=== PATIENT | female | born 1955 | race Two or more races ===

== ENCOUNTER → 2016-12-12 12:31 | Outpatient (CLI) | payer MEDICAID ==
--- NOTE | 2016-12-17 14:16 | EC ---
PATIENT:SHARI LOPEZ DATE OF SERVICE: 12/12/16 SEX: F MEDICAL RECORD: [id number] DATE OF : 55 LOCATION:D[facility] AGE OF PATIENT: 61 ADMISSION DATE: 12/12/16 REFERRING PHYSICIAN: INTERPRETING PHYSICIAN: CHASITY ARIAS MD ECHOCARDIOGRAM REPORT ECHO CHARGES 4 ECHO COMPLETE CLINICAL DIAGNOSIS: ABN EKG/ HX OF HTN/DM ECHOCARDIOGRAPHIC MEASUREMENTS (adult normal given) AC root (d.<3.7cm) 3.4 LV Septum d (<1.2 cm> 2.0 Valve Excursion 1.7 LV Septum (systole) 2.2 Left Atria (s.<4.0cm> 3.7 LVPW d(<1.2cm) 1.8 RV (d.<2.3cm) 3.7 LVPW (sytole) 2.0 LV diastole(<5.6CM) 4.7 MV E-F(>70mm/sec) LV systole 3.0 LVOT Diameter 1.7 MV exc.(>10mm) 1.4 Est.ejection fraction (50-75%) Pericardial Effusion N DOPPLER: LVIT A 92.0 E 84.0 LA RVSP 38 LVOT 151 AOP1/2T Asc. Ao 228 RVOT 105 RA PA 132 AV Gradient Peak 20.72 AV Mean 9.29 AV Area 1.8 MV Gradient Peak 4.23 MV Mean 1.33 MV Area COMMENTS: Jewelry Casting Model Maker: Sarika FARRIS Video Game Engineer:Renetta Palmer TAPE# PACS DATE OF SERVICE: 12/12/2016 Adequate 2D echo, color flow and spectral Doppler, and M-mode. LVH is present. LV internal dimensions are normal. Wall motion is normal. EF is greater than or equal to 55%. Aortic valve is tricuspid. No evidence of stenosis by Doppler interrogation. The left atrium is normal at 3.7 cm. Mitral valve shows no prolapse. Mild MR only. Right-sided chamber is grossly normal. Mild TR only. TRANSINT:[id number] Voice Confirmation ID: [id number] DOCUMENT ID: [id number] ECHOCARDIOGRAM REPORT [id number] SHARI LOPEZ CHASITY ARIAS MD at [id number] CC: [id number] DICTATION DATE: 12/13/16 1131 SALES REPRESENTATIVE [employer]: 12/13/162054 DEP CLI 12/12/16 [place] [id number] [place] [address]
== END | disposition home or self-care (01) ==
LOC: D.ECHO 12:31
DX: R94.31 Abnormal electrocardiogram [ECG] [EKG] (principal)